=== PATIENT | female | born 1960 | race African-American/Black ===

== ENCOUNTER 2018-02-01 01:19 | Emergency (ER) | payer OTHER ==
[~2018-02-01] VITALS: Ht 167.6 cm; Wt 86.0 kg
[~2018-02-01 01:19] MED LIST: ASPI81 PO; HYDR12.54 PO; OMEP20 PO
[2018-02-01] MEDS ORDERED: POTASSIUM CHLORIDE PO (01:26)
[2018-02-01] MEDS ORDERED: DEXAMETHASONE SOD PHOS 4 MG/ML 5 ML VIAL IM ONE (03:00)
[2018-02-01] MEDS ORDERED: KETOROLAC TROMETHAMINE 60 MG/2 ML VIAL IM ONE (03:00)
[2018-02-01] MEDS ORDERED: CYCLOBENZAPRINE HCL 10 MG TABLET PO ONE (03:00)
[2018-02-01 03:21] VITALS: BP 147/92
== END 2018-02-01 03:46 | disposition home or self-care (01) ==
LOC: EMS 01:20
DX: M75.102 Unspecified rotator cuff tear or rupture of left shoulder, not specified as traumatic (principal); I10 Essential (primary) hypertension
CPT/HCPCS: 96372; 99284; J1100; J1885

== ENCOUNTER 2018-10-26 09:08 | Emergency (ER) | payer SELFPAY ==
[~2018-10-26] VITALS: Ht 170.2 cm; Wt 90.9 kg
[~2018-10-26 09:08] MED LIST changes: -OMEP20 PO; +POTASSIUM CHLORIDE PO
[2018-10-26 13:39] VITALS: BP 125/79
== END 2018-10-26 14:16 | disposition home or self-care (01) ==
LOC: EMS 09:09
DX: M54.12 Radiculopathy, cervical region (principal); I10 Essential (primary) hypertension; Z79.82 Long term (current) use of aspirin

== ENCOUNTER 2023-03-20 15:40 | Emergency (ER) | payer OTHER ==
[~2023-03-20] VITALS: Ht 167.6 cm; Wt 95.5 kg
[~2023-03-20 15:40] MED LIST changes: +ASPI-1450 PO; -ASPI81 PO
[2023-03-20] MEDS ORDERED: LISI-893 PO (15:44)
[2023-03-20 16:29] VITALS: BP 132/77
[2023-03-20] MEDS ORDERED: LIDOCAINE 5% TRANSDERMAL PATCH TD ONE (16:30)
[2023-03-20] MEDS ORDERED: LIDO700A15 TP (16:45)
== END 2023-03-20 16:54 | disposition home or self-care (01) ==
LOC: EMS 15:48
DX: S29.012A Strain of muscle and tendon of back wall of thorax, initial encounter (principal); I10 Essential (primary) hypertension; X58.XXXA Exposure to other specified factors, initial encounter; Y93.89 Activity, other specified; Y92.89 Other specified places as the place of occurrence of the external cause; Y99.8 Other external cause status
CPT/HCPCS: 99282; Z7502; Z7610